=== PATIENT | male | born 1965 ===

== ENCOUNTER → 2018-02-01 | Outpatient (CLI) | payer OTHER ==
[~2018-02-01] VITALS: Ht 167.6 cm; Wt 124.7 kg
[~2018-02-01] MED LIST: ATORVASTATIN CA40 MG PO; CELEXA10 MG PO; ERGOCALCIF50000 UNIT PO; GLUCOPHAGE XR500 MG PO; LISINOPRIL40 MG PO; NORCO 5-325 TA1 EACH PO; NORVASC5 MG PO; PROTONIX40 M1 PO; ZANAFLEX2 MG PO
--- NOTE | ~2018-02-01 | PATH ---
[facility] [address] [address] PATHOLOGY RPT PROCEDURE Name: LOUISE FREDERICK Neil Room #: REG ISAIAH Renteria.#: [id number] Admission: 02/01/18 Date of : 69 Discharge: Report #: [id number] Path Case #: [id number] [facility] Accession Number: [id number] . 01 Material submitted: . PART A: POLYP AT SIGMOID COLON PART B: RECTAL POLYP . 01 Clinical history: . Screening Colon polyp . 02 Diagnosis: A. Polyp, at sigmoid colon, endoscopic biopsy: - Hyperplastic polyp. - Negative for dysplasia. . B. Polyp, rectal polyp, endoscopic biopsy: - Hyperplastic polyp. - Negative for dysplasia. (IUV:em; 02/02/2018) QMS/02/02/2018 . 02 Electronically signed: . Carmella Villa MD, Pathologist NPI- [id number] . 01 Gross description: . A. The specimen is received in formalin, labeled "Louise Frederick, polyp at sigmoid colon" and consists of 3 fragments of soft dutta tissue measuring between 0.3 x 0.2 x 0.1 cm and 0.2 x 0.2 x 0.1 cm. They are entirely submitted in A1. . B. The specimen is received in formalin, labeled "Louise Frederick, rectal polyp" and consists of 2 fragments of soft dutta tissue measuring 0.4 x 0.3 x 0.1 cm and 0.3 x 0.3 x 0.1 cm. They are entirely submitted in B1. (SDY; 02/01/2018) SYU/SYU . 02 Pathologist provided ICD-10: K63.5, K62.1 . 02 CPT . 912704, [id number] Performed at: [address], [place] [id number] [place] [address] [employer] [place] [address] PATHOLOGY RPT PROCEDURE Name: LOUISE FREDERICK Room #: REG [facility].#: [id number] Admission: 02/01/18 Date of : 69 Discharge: Report #: [id number] Path Case #: [id number] MD Sarbjit Grossman MD Phone: [phone] Performed at: [address] [id number] MD Carmella Villa MD Phone: [phone]
== END | disposition home or self-care (01) ==
LOC: GI 07:40
DX: Z12.11 Encounter for screening for malignant neoplasm of colon (principal); K62.1 Rectal polyp; K63.5 Polyp of colon; K62.5 Hemorrhage of anus and rectum; K64.8 Other hemorrhoids; K21.9 Gastro-esophageal reflux disease without esophagitis; I10 Essential (primary) hypertension; E11.9 Type 2 diabetes mellitus without complications; E78.00 Pure hypercholesterolemia, unspecified; M10.9 Gout, unspecified; F32.9 Major depressive disorder, single episode, unspecified; G47.33 Obstructive sleep apnea (adult) (pediatric); F41.9 Anxiety disorder, unspecified; M19.90 Unspecified osteoarthritis, unspecified site; Z87.891 Personal history of nicotine dependence; Z98.890 Other specified postprocedural states; Z79.899 Other long term (current) drug therapy
CPT/HCPCS: 62110; 62900